=== PATIENT | female | born 1970 | race Caucasian/White ===

== ENCOUNTER 2018-10-02 23:23 | Inpatient (IN) | payer MEDICAID ==
[2018-10-02] MEDS ORDERED: IBUPROFEN 600 MG TAB PO STA (23:49)
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
[2018-10-03] MEDS ORDERED: ACTIVATED CHARCOAL 50 GM/240 ML BOTTLE PO STA (00:05)
[2018-10-03] MEDS ORDERED: KETOROLAC 30 MG/ML 1 ML VIAL IM STA (00:33)
[2018-10-03 01:26] LABS: Basophils # (A) 0.1 k/uL (0-0.2); Basophils % (A) 1 %; Eosinophils # (A) 0.1 k/uL (0-0.7); Eosinophils % (A) 2 %; HCT 34.7 % (34.0-46.0); HGB 11.7 gm/dL (11.4-16.0); Lymphocytes # (A) 2.3 k/uL (1.0-4.8); Lymphocytes % (A) 32 %; MCH 32.4 pg (25.0-35.0); MCHC 33.7 g/dL (31.0-37.0); MCV 96.1 fL (80.0-100.0); Mean Platelet Volume 7.9; Monocytes # (A) 0.6 k/uL (0-1.0); Monocytes % (A) 8 %; Neutrophils % (A) 55 %; Platelet Count 251 k/uL (150-450); RBC 3.61 m/uL (3.80-5.40); RDW 13.2 % (11.5-15.5); WBC 7.2 k/uL (3.8-10.6)
[2018-10-03 01:36] LABS: ALT 28 U/L (9-52); AST 24 U/L (14-36); Alkaline Phosphatase 155 U/L (38-126); Anion Gap 6 mmol/L; Blood Urea Nitrogen 13 mg/dL (7-17); Calcium 9.2 mg/dL (8.4-10.2); Carbon Dioxide 29 mmol/L (22-30); Chloride 104 mmol/L (98-107); Glucose 128 mg/dL (74-99); Potassium 3.6 mmol/L (3.5-5.1); Sodium 139 mmol/L (137-145); Total Bilirubin 0.3 mg/dL (0.2-1.3); Total Protein 6.5 g/dL (6.3-8.2)
[2018-10-03 03:59] LABS: Amphetamine Screen,Urine Detected (NotDetected); Barbiturate Screen,Urine Not Detected (NotDetected); Benzodiazepines Screen,Urine Detected (NotDetected); Cocaine Screen,Urine Not Detected (NotDetected); Methadone Screen, Urine Not Detected (NotDetected); Opiate Screen,Urine Not Detected (NotDetected); Oxycodone Screen, Urine Detected (NotDetected); Phencyclidine Screen,Urine Not Detected (NotDetected); Tricyclic Antidepressant,Urine Not Detected (NotDetected); Urn Cannabinoid Scrn Detected (NotDetected)
[2018-10-03 04:00] LABS: Appearance,Urine Clear (Clear); Bilirubin,Urine Negative (Negative); Blood,Urine Negative (Negative); Color,Urine Light Yellow; Glucose,Urine (UA) Negative (Negative); Ketones,Urine Negative (Negative); Leukocyte Esterase,Urine Small (Negative); Mucus,Urine Rare /hpf; Nitrite,Urine Negative (Negative); Protein,Urine Negative (Negative); RBC,Urine 1 /hpf (0-5); Specific Gravity,Urine 1.007 (1.001-1.035); Squamous Epithelial Cell,Urine 3 /hpf (0-4); Urobilinogen,Urine <2.0 mg/dL (<2.0); WBC,Urine 6 /hpf (0-5)
[2018-10-03] MEDS ORDERED: KETOROLAC 60 MG/2 ML VIAL IM STA (13:04)
[2018-10-03] MEDS ORDERED: MAG HYDROX/AL HYDROX/SIMETH 30 ML CUP PO PRN (13:57)
[2018-10-03] MEDS ORDERED: ACETAMINOPHEN TAB 325 MG TAB PO PRN (13:57)
[2018-10-03] MEDS ORDERED: MAGNESIUM HYDROXIDE 2,400 MG/10 ML CUP PO PRN (13:57)
[2018-10-03] MEDS ORDERED: ZIPRASIDONE 20 MG VIAL IM PRN (13:57)
[2018-10-03] MEDS ORDERED: GABAPENTIN 300 MG CAP PO STA (14:19)
[2018-10-03] MEDS ORDERED: GABAPENTIN 100 MG CAP PO STA (14:19)
[2018-10-03] MEDS: LORazepam 1 MG TAB PO PRN ×2 (15:33→23:06)
[2018-10-03] MEDS ORDERED: IBUPROFEN 600 MG TAB PO PRN (16:04)
[2018-10-03] MEDS: GABAPENTIN 300 MG CAP PO SCH ×2 (16:04→23:06)
[2018-10-03 16:29] VITALS: BMI 23.5
--- NOTE | 2018-10-03 18:29 | P.MDCNMH ---
History of Present Illness H&P Date: 10/03/18 Chief Complaint: evaluation for pain control patient is 48 year old female with history of ADHD. she was brought to the hospital by [facility] for psychiatric evalu ation. Patient reports being in a lot of pain that made her hope and wish that she can . She was having suicidal ideation for which her daughter called the [facility] department. Patient admits to being agitated due to poor pain control. In the ER she was found to be combative and uncooperative. When asked about suicidal ideation she reports that due to pain she hopes and wishes that she wouldn't wake up anymore but she wouldn't actively pursue or commit suicide. Patient currently denies any chest pain or trouble breathing denies any fevers or chills denies any coughing denies any upper respiratory like infection symptoms denies any GI bleeding. She takes Percocet at home for pain control without much benefit per her report Review of Systems Pertinent positives as noted in HPI. All other systems were reviewed and are negative Past Medical History Past Medical History: No Reported History History of Any Multi-Drug Resistant Organisms: None Reported Past Surgical History: Section, Hysterectomy, Orthopedic Surgery Additional Past Surgical History / Comment(s): back surgery Smoking Status: Never smoker Medications and Allergies Home Medications Medication Instructions Recorded Confirmed Type Dextroamphetamine/Amphetamine 20 mg PO TID 10/03/18 10/03/18 History [Adderall] Diazepam [Valium] 5 mg PO TID PRN 10/03/18 10/03/18 History FLUoxetine HCL [PROzac] 20 mg PO DAILY 10/03/18 10/03/18 History Gabapentin [Neurontin] 300 mg PO TID 10/03/18 10/03/18 History oxyCODONE-APAP 5-325MG [Percocet 1 tab PO Q6HR PRN 10/03/18 10/03/18 History 5-325 mg] Allergies Allergy/AdvReac Type Severity Reaction Status Date / Time latex Allergy Rash/Hives Verified 10/03/18 07:38 Physical Exam Vitals: Vital Signs Temp Pulse Pulse Resp BP BP Pulse Ox 10/03/18 16:21 98.6 F 64 16 130/85 99 10/03/18 14:49 97.1 F L 59 L 18 107/67 98 10/03/18 10:44 66 18 102/57 95 10/03/18 02:00 68 16 103/62 100 10/02/18 23:32 98.7 F 78 18 140/79 99 Intake and Output 10/03/18 10/03/18 10/03/18 06:59 14:59 22:59 Other: Weight 62.596 kg 62.1 kg Constitutional: No acute distress, conversant, pleasant Eyes: Anicteric sclerae, moist conjunctiva, no lid-lag Pupils equal round reactive to light ENMT: NC/AT Oropharynx clear, no erythema, exudates Neck: Supple, FROM, no masses, or JVD No carotid bruits No thyromegaly Lungs: Clear to auscultation Clear to percussion Normal respiratory effort, no accessory muscle use Cardiovascular: Heart regular in rate and rhythm, No murmurs, gallops, or rubs No peripheral edema Abdominal: Soft Nontender, no guarding, rebound or rigidity Abdomen moving with respiration Normoactive bowel sounds No hepatomegaly, No splenomegaly No palpable mass No abdominal wall hernia noted Skin: Normal temperature, tone, texture, turgor No induration No subcutaneous nodules No rash, lesions No ulcers Extremities: No digital cyanosis No clubbing Pedal pulses intact and symmetrical Radial pulses intact and symmetrical No calf tenderness Psychiatric: Alert and oriented to person, place and time Depressed affect, avoids eye contact Poor judgment Neuro Muscles Strength 5/5 in bilateral upper extremities, 4 out of 5 in bilateral lower extremities Sensation to light touch grossly present throughout Cranial nerves II-XII grossly intact No focal sensory deficits Straight leg raise is negative Lymphatics: no palpable cervical or supraclavicular , or inguinal lymph nodes Cranial Nerve Examination - Cranial Nerves Cranial Nerve II- Optic: Intact Cranial Nerve III- Oculomotor: Intact Cranial Nerve IV- Trochlear: Intact Cranial Nerve V- Trigeminal: Intact Cranial Nerve - Abducens: Intact Cranial Nerve VII- Facial: Intact Cranial Nerve VIII- Auditory: Intact Cranial Nerve IX- Glossopharyngeal: Intact Cranial Nerve X- Vagus: Intact Cranial Nerve XI- Accessory: Intact Cranial Nerve XII- Hypoglossal: Intact Results CBC & Chem 7: 10/03/18 01:15 10/03/18 01:15 Labs: Abnormal Lab Results - Last 24 Hours (Table) 10/03/18 10/03/18 10/03/18 Range/Units 01:15 01:15 03:35 RBC 3.61 L (3.80-5.40) m/uL Glucose 128 H (74-99) mg/dL Alkaline Phosphatase 155 H (38-126) U/L Ur Leukocyte Esterase Small H (Negative) Urine WBC 6 H (0-5) /hpf Urine Mucus Rare H (None) /hpf Ur Oxycodone Screen Detected H (NotDetected) Ur Amphetamines Screen Detected H (NotDetected) U Benzodiazepines Scrn Detected H (NotDetected) U Marijuana (THC) Screen Detected H (NotDetected) Assessment and Plan Assessment: 48-year-old female with history of ADHD presents to the hospital for psychiatric evaluation for suicidal ideation upon request of her daughter. Medicine consult for pain management. Patient was screaming in the ER being combative and uncooperative claiming that she is in a lot of pain Plan: Intractable low back pain and bilateral leg pain Patient had orthopedic surgery for her lower back for spinal stenosis per her claim Continue with Neurontin Continue with ibuprofen 800 3 times a day PPI for GI prophylaxis Patient low risk for DVT, patient is ambulatory Psychosis with combative and uncooperative behavior Suicidal ideation Management per psych Labs reviewed shows polysubstance abuse Thank you for allowing us to participate in the care of this patient. We will follow peripherally. Do not hesitate to contact us with questions. Someone can be reached from the [facility] hospitalist group at all hours of the day at [phone].
[2018-10-03] MEDS: PANTOPRAZOLE 40 MG TABLET PO SCH (18:58)
[2018-10-03] MEDS ORDERED: MELOXICAM 7.5 MG TAB PO SCH (21:00)
[2018-10-03] MEDS: IBUPROFEN 800 MG TAB PO PRN (23:05)
[2018-10-04] MEDS ORDERED: PANTOPRAZOLE 40 MG TABLET PO SCH (07:30)
[2018-10-04] MEDS ORDERED: NICOTINE 14MG/24HR PATCH TRANSDERM SCH (09:00)
[2018-10-04] MEDS ORDERED: FLUoxetine HCL 20 MG CAP PO SCH (09:00)
[2018-10-04] MEDS: IBUPROFEN 800 MG TAB PO PRN ×2 (09:09→16:45)
[2018-10-04] MEDS: PANTOPRAZOLE 40 MG TABLET PO SCH ×2 (09:09→16:17)
[2018-10-04] MEDS: GABAPENTIN 300 MG CAP PO SCH ×3 (09:09→20:09)
[2018-10-04] MEDS: LORazepam 1 MG TAB PO PRN ×2 (10:39→19:10)
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
[2018-10-04] MEDS: LIDOCAINE 5% PATCH TOPICAL SCH (21:23)
[2018-10-05] MEDS: FLUoxetine HCL 20 MG CAP PO SCH (08:08)
[2018-10-05] MEDS: GABAPENTIN 300 MG CAP PO SCH ×3 (08:08→21:09)
[2018-10-05] MEDS: IBUPROFEN 800 MG TAB PO PRN ×3 (08:08→21:09)
[2018-10-05] MEDS: PANTOPRAZOLE 40 MG TABLET PO SCH ×2 (08:08→17:23)
--- NOTE | 2018-10-05 15:16 | P.PN ---
Progress Note - Text Progress Note Date: 10/05/18 Interval history: Patient seen in [facility] today. She does report that she talked her mom on the phone which seemed to go well and her daughter may be visiting [facility]. She does talk about having issues with pain, she has been started on the Lidoderm patch which is helping some. She does not voice any adverse psychotropic medication side effects from the Prozac. Mental status exam: She is alert and cooperative with the interview. Her speech is fluent, not rapid or pressured. Thought processes are organized. Her mood overall seems to be improved. She denies any thoughts of harm to self or others. No evidence of active psychosis. Plan: Patient be maintained on Prozac as current. She will be monitored regarding any medication side effects and continue to monitor her ongoing response to treatment.
[2018-10-05] MEDS: LIDOCAINE 5% PATCH TOPICAL SCH (21:07)
[2018-10-05] MEDS: LORazepam 1 MG TAB PO PRN (21:09)
[2018-10-06] MEDS: PANTOPRAZOLE 40 MG TABLET PO SCH ×2 (08:48→17:30)
[2018-10-06] MEDS: GABAPENTIN 300 MG CAP PO SCH (08:49)
[2018-10-06] MEDS: FLUoxetine HCL 20 MG CAP PO SCH (08:49)
[2018-10-06] MEDS: IBUPROFEN 800 MG TAB PO PRN (08:50)
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
[2018-10-06] MEDS: MELOXICAM 7.5 MG TAB PO SCH (20:54)
[2018-10-06] MEDS: LIDOCAINE 5% PATCH TOPICAL SCH (20:57)
[2018-10-06] MEDS ORDERED: PRAMIPEXOLE 0.5 MG TAB PO SCH (21:00)
[2018-10-06] MEDS ORDERED: VENLAFAXINE HCL ER 37.5 MG CAP PO SCH (21:00)
[2018-10-07] MEDS: MELOXICAM 7.5 MG TAB PO SCH ×2 (08:17→20:15)
[2018-10-07] MEDS: PANTOPRAZOLE 40 MG TABLET PO SCH ×2 (08:17→17:01)
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
[2018-10-07] MEDS: PRAMIPEXOLE 0.5 MG TAB PO SCH (20:13)
[2018-10-07] MEDS: LIDOCAINE 5% PATCH TOPICAL SCH (20:14)
[2018-10-07] MEDS ORDERED: lamoTRIgine 25 MG TAB PO SCH (21:00)
[2018-10-07] MEDS ORDERED: VENLAFAXINE HCL ER 75 MG CAP PO SCH (21:00)
[2018-10-08] MEDS ORDERED: TRIMETHOBENZAMIDE 300 MG CAP PO ONE (02:49)
[2018-10-08] MEDS ORDERED: PROCHLORPERAZINE 10 MG TAB PO ONE (03:02)
[2018-10-08] MEDS ORDERED: PROCHLORPERAZINE 5 MG TAB PO ONE (03:15)
[2018-10-08 07:48] LABS: Anion Gap 5 mmol/L; Blood Urea Nitrogen 14 mg/dL (7-17); Calcium 9.5 mg/dL (8.4-10.2); Carbon Dioxide 33 mmol/L (22-30); Chloride 105 mmol/L (98-107); Glucose 98 mg/dL (74-99); Potassium 3.5 mmol/L (3.5-5.1); Sodium 143 mmol/L (137-145)
[2018-10-08] MEDS: PANTOPRAZOLE 40 MG TABLET PO SCH ×2 (10:31→17:23)
[2018-10-08] MEDS: MELOXICAM 7.5 MG TAB PO SCH (10:31)
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
[2018-10-08] MEDS: IBUPROFEN 800 MG TAB PO PRN (20:03)
[2018-10-08] MEDS: PRAMIPEXOLE 0.5 MG TAB PO SCH (20:48)
[2018-10-08] MEDS ORDERED: lamoTRIgine 25 MG TAB PO SCH (21:00)
[2018-10-08] MEDS ORDERED: VENLAFAXINE HCL ER 150 MG CAP PO SCH (21:00)
[2018-10-08] MEDS: LIDOCAINE 5% PATCH TOPICAL SCH (21:18)
[2018-10-09 06:58] VITALS: BP 123/71; PULSE 59; RESP 14; TEMP 98.9
[2018-10-09] MEDS: PANTOPRAZOLE 40 MG TABLET PO SCH (08:31)
[2018-10-09] MEDS: IBUPROFEN 800 MG TAB PO PRN (08:31)
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
== END 2018-10-09 11:55 | disposition home or self-care (01) | DRG 885 ==
LOC: EC 23:23 → 3MHU 10-03 13:48
PROVIDERS: ADMIT Psychiatry & Neurology Psychiatry; ATTEND Psychiatry & Neurology Psychiatry
DX: F33.2 Major depressive disorder, recurrent severe without psychotic features (principal); R45.851 Suicidal ideations; Z78.1 Physical restraint status; F90.9 Attention-deficit hyperactivity disorder, unspecified type; F41.9 Anxiety disorder, unspecified; R26.2 Difficulty in walking, not elsewhere classified; G89.4 Chronic pain syndrome; M79.7 Fibromyalgia; G25.81 Restless legs syndrome; M54.9 Dorsalgia, unspecified; M25.562 Pain in left knee; Z79.899 Other long term (current) drug therapy; Z91.040 Latex allergy status; Z90.710 Acquired absence of both cervix and uterus; Z98.891 History of uterine scar from previous surgery; Z98.890 Other specified postprocedural states
CPT/HCPCS: 36415; 51798; 80048; 80053; 80306; 81001; 81025; 82075; 85025; 96372; 99285

== ENCOUNTER → 2018-10-21 | Outpatient (CLI) | payer MEDICAID ==
--- NOTE | 2018-10-21 14:20 | XR ---
EXAMINATION TYPE: XR pelvis AP view DATE OF EXAM: 10/21/2018 COMPARISON: NONE HISTORY: Pain The osseous structures are intact and the joint spaces are preserved. No acute fracture is seen. Vi sualized bowel gas pattern is nonspecific. Postsurgical change involving the SI joints and lower lum bar spine noted. Arthropathy of the hips. Calcifications the pelvis are likely vascular. Tiny calcifi cation the left paraspinal region is nonspecific. IMPRESSION: 1. No acute fracture. 2. Postsurgical changes.
== END ==
LOC: RADXRMAIN 13:05
PROVIDERS: ATTEND Neurological Surgery
DX: M25.9 Joint disorder, unspecified (principal); Z98.890 Other specified postprocedural states
CPT/HCPCS: 72170

== ENCOUNTER → 2019-04-21 | Outpatient (CLI) | payer MEDICAID ==
--- NOTE | 2019-04-21 14:17 | XR ---
EXAMINATION TYPE: XR chest 2V DATE OF EXAM: 04/21/2019 COMPARISON: NONE TECHNIQUE: PA and lateral views submitted. HISTORY: Cough FINDINGS: The lungs are clear and there is no pneumothorax, pleural effusion, or focal pneumonia. Hypertrophi c and degenerative change of the spine. No overt failure. IMPRESSION: 1. No acute process.
== END | disposition home or self-care (01) ==
LOC: RADXRMAIN 13:31
PROVIDERS: ATTEND Family Medicine
DX: R05 Cough (principal)
CPT/HCPCS: 71046

== ENCOUNTER 2019-07-13 16:51 | Emergency (ER) | payer MEDICAID ==
[2019-07-13] MEDS ORDERED: KETOROLAC 60 MG/2 ML VIAL IM STA (18:52)
--- NOTE | 2019-07-13 19:10 | US ---
EXAMINATION TYPE: US venous doppler duplex LE LT DATE OF EXAM: 07/13/2019 6:48 PM COMPARISON: NONE CLINICAL HISTORY: rule out DVT. Rule out DVT. Patient feels painful lump behind knee x 2 days. Maliha coleman does not take any blood thinners. No hx of DVT. SIDE PERFORMED: Left TECHNIQUE: The lower extremity deep venous system is examined utilizing real time linear array sonog lety with graded compression, doppler sonography and color-flow sonography. VESSELS IMAGED: External Iliac Vein (EIV) Common Femoral Vein Deep Femoral Vein Greater Saphenous Vein * Femoral Vein Popliteal Vein Small Saphenous Vein * Proximal Calf Veins (* superficial vessels) Left Leg: No evidence of DVT in veins imaged at this time from prox calf veins to EIV. At the patien t's area of concern left posteromedial knee, there appears to be a primarily anechoic area with minim al debris measurin.5 x 2.7 x 2.1 cm. IMPRESSION: No evidence of deep venous thrombosis. There is popliteal cyst noted.
--- NOTE | 2019-07-13 19:23 | ED ---
Extremity Problem HPI - General Chief complaint: Extremity Problem,Nontraumatic Stated complaint: Leg pain Source: patient Mode of arrival: wheelchair Limitations: no limitations - History of Present Illness Initial comments: 49 female presenting today for chief complaint of posterior medial left knee pain patient states that she has felt a lump in this area and has some pain that increases with range of motion. Patient denies any redness of the knee and difficulty weightbearing. Patient states she is able to range the knee however is painful at maximal flexion. Remaining review of systems negative including to allow any flulike, general malaise fever or chills. Upon arrival patient appears well no signs acute distress ambulate without difficulty. She denies any history of DVT or coronary embolism denies any exogenous hormone use or recent travel denies any recent surgical procedures or fractures. Patient denies any known clotting disorders. - Related Data Previous Rx's Medication Instructions Recorded Acetaminophen Tab [Tylenol] 650 mg PO Q4HR PRN tab 10/09/18 Gabapentin [Neurontin] 300 mg PO TID 30 Days #90 cap 10/09/18 Ibuprofen [Motrin] 800 mg PO TID PRN tab 10/09/18 Lidocaine 5% Patch [Lidoderm 5% 1 patch TOPICAL Q24H 30 Days #30 10/09/18 Patch] patch Pantoprazole [Protonix] 40 mg PO AC-BID tablet. 10/09/18 Pramipexole [Mirapex] 1.5 mg PO 2100 30 Days #90 tab 10/09/18 Venlafaxine HCl ER [Effexor XR] 150 mg PO 2100 30 Days #30 10/09/18 cap.er.24h lamoTRIgine [LaMICtal] 50 mg PO 2100 30 Days #60 tab 10/09/18 Allergies Allergy/AdvReac Type Severity Reaction Status Date / Time latex Allergy Rash/Hives Verified 10/03/18 07:38 Review of Systems ROS Statement: Those systems with pertinent positive or pertinent negative responses have been documented in the HPI. ROS Other: All systems not noted in ROS Statement are negative. Past Medical History Past Medical History: No Reported History History of Any Multi-Drug Resistant Organisms: None Reported Past Surgical History: Section, Hysterectomy, Orthopedic Surgery Additional Past Surgical History / Comment(s): back surgery Past Psychological History: ADD/ADHD Smoking Status: Never smoker Past Alcohol Use History: None Reported Past Drug Use History: None Reported General Exam - General Exam Comments Initial Comments: General: The patient is awake and alert, in no distress, and does not appear acutely ill. Eye: +3 mm pupils are equal, round and reactive to light, extra-ocular movements are intact. No nystagmus. There is normal conjunctiva bilaterally. No signs of icterus. Ears, nose, mouth and throat: There are moist mucous membranes and no oral lesions. Cardiovascular: There is a regular rate and rhythm. No murmur, rub or gallop is appreciated. Respiratory: Lungs are clear to auscultation, respirations are non-labored, breath sounds are equal. No wheezes, stridor, rales, or rhonchi. Gastrointestinal: Soft, non-distended, non-tender abdomen without masses or organomegaly noted. There is no rebound or guarding present. Musculoskeletal: Normal ROM, no tenderness. Strength 5/5. Sensation intact. Radial pulses equal bilaterally 2+. No calf swelling, no calf masses or point localized tenderness. No edema. No redness to the area. SMll 1x3xm circular mass behind left knee medical aspect. Neurological: A&O x 3. CN II-XII intact grossly, There are no obvious motor or sensory deficits. Coordination appears grossly intact. Speech is normal. Skin: Skin is warm and dry and no rashes or lesions are noted. Psychiatric: Cooperative, appropriate mood & affect, normal judgment. Limitations: no limitations Course Vital Signs 07/13/19 07/13/19 18:01 19:38 Temperature 98.4 F 97.8 F Pulse Rate 68 66 Respiratory 20 16 Rate Blood Pressure 117/63 120/75 O2 Sat by Pulse 100 98 Oximetry Medical Decision Making - Medical Decision Making 49-year-old. Presents today for chief complaint of posterior left knee pain evidence on ultrasound consistent with Quinn's cyst. Patient has no evidence of deep venous thrombosis at this time patient is no leg swelling or calf size increase. No redness or local cellulitis noted. No significant risk fctors. I feel at this time she is stable to discharge with PCP ion 1-2 days as well as orthoepdic surgery in next week. She is agreeable to this care plan and discharged at this time. I did discuss the case might attending provider Dr. Peguero Disposition Clinical Impression: Popliteal cyst, Posterior left knee pain Disposition: HOME SELF-CARE Condition: Good Instructions (If sedation given, give patient instructions): Bakers Cyst (ED) Additional Instructions: Please use medication as discussed. Please follow-up with family doctor in the next 2 days. Please return to emergency room if the symptoms increase or worsen or for any other concerns. Is patient prescribed a controlled substance at d/c from ED?: No Referrals: Kane Manning MD [Primary Care Provider] - 1-2 days Mehul Soria MD [Medical Doctor] - 1-2 days Time of Disposition: 19:23
[2019-07-13 19:39] VITALS: BP 120/75; PULSE 66; RESP 16; TEMP 97.8
== END 2019-07-13 19:39 | disposition home or self-care (01) ==
LOC: EC 16:51
DX: M71.22 Synovial cyst of popliteal space [Baker], left knee (principal); Z91.040 Latex allergy status
CPT/HCPCS: 93971; 99283; 96372; J1885

== ENCOUNTER 2019-07-25 21:39 | Emergency (ER) | payer MEDICAID ==
[2019-07-25 21:50] VITALS: BP 127/84; PULSE 92; RESP 18; TEMP 98
[2019-07-25] MEDS ORDERED: KETOROLAC 60 MG/2 ML VIAL IM STA (22:03)
--- NOTE | 2019-07-25 22:30 | XR ---
EXAMINATION TYPE: XR ankle complete LT DATE OF EXAM: 07/25/2019 COMPARISON: NONE HISTORY: Fall. Pain. TECHNIQUE: 3 views FINDINGS: Ankle mortise is anatomic. I see no fracture nor dislocation. Joint spaces are normal. IMPRESSION: Negative left ankle exam.
--- NOTE | 2019-07-25 22:38 | ED ---
Lower Extremity Injury HPI - General Chief Complaint: Extremity Injury, Lower Stated Complaint: Ankle injury Time Seen by Provider: 07/25/19 21:50 Source: patient Mode of arrival: wheelchair Limitations: no limitations - History of Present Illness Initial Comments: 49yo female presenting for cc of left ankle pain after injury that occurred today at 12:26PM. Patient states she was walking in her kitchen to the living room when she inverted her left ankle. She states that she did not fall. Patient states that her period bed. The pain persisted into the evening she was concerned there is a possible fracture present to the ER for evaluation. Patient is able to weight-bear continued to walk. Patient did show a video of home surveillance which showed her yelling out in pain as she tripped but caught herself or walking. She was walking with close in her hand. Patient does not fall of injury to any other extremity that was noted, no head neck or back injury> patient denies pain the knee or hip. Patient appears well on arriva. - Related Data Previous Rx's Medication Instructions Recorded Acetaminophen Tab [Tylenol] 650 mg PO Q4HR PRN tab 10/09/18 Gabapentin [Neurontin] 300 mg PO TID 30 Days #90 cap 10/09/18 Ibuprofen [Motrin] 800 mg PO TID PRN tab 10/09/18 Lidocaine 5% Patch [Lidoderm 5% 1 patch TOPICAL Q24H 30 Days #30 10/09/18 Patch] patch Pantoprazole [Protonix] 40 mg PO AC-BID tablet. 10/09/18 Pramipexole [Mirapex] 1.5 mg PO 2100 30 Days #90 tab 10/09/18 Venlafaxine HCl ER [Effexor XR] 150 mg PO 2100 30 Days #30 10/09/18 cap.er.24h lamoTRIgine [LaMICtal] 50 mg PO 2100 30 Days #60 tab 10/09/18 Allergies Allergy/AdvReac Type Severity Reaction Status Date / Time latex Allergy Rash/Hives Verified 10/03/18 07:38 Review of Systems ROS Statement: Those systems with pertinent positive or pertinent negative responses have been documented in the HPI. ROS Other: All systems not noted in ROS Statement are negative. Past Medical History Past Medical History: No Reported History History of Any Multi-Drug Resistant Organisms: None Reported Past Surgical History: Section, Hysterectomy, Orthopedic Surgery Additional Past Surgical History / Comment(s): back surgery Past Psychological History: ADD/ADHD Smoking Status: Never smoker Past Alcohol Use History: None Reported Past Drug Use History: None Reported General Exam - General Exam Comments Initial Comments: General: The patient is awake and alert, in no distress, and does not appear acutely ill. Eye: Pupils are equal, round and reactive to light, extra-ocular movements are intact. No nystagmus. There is normal conjunctiva bilaterally. No signs of icterus. Cardiovascular: There is a regular rate and rhythm. No murmur, rub or gallop is appreciated. Respiratory: Lungs are clear to auscultation, respirations are non-labored, breath sounds are equal. No wheezes, stridor, rales, or rhonchi. Musculoskeletal: Upon social of the ankles bilaterally there is mild soft tissue swelling of the lateral malleolus of the left ankle comparison to right. No abrasions lacerations redness or warmth. Patient is able to fully range at the ankles bilaterally contains of left anterior ankle pain denies any foot pain denies any pain in the proximal tibia and fibula. Patient hasn't no pain with log roll of the left hip. Patient is point localized tenderness over the lateral malleolus and the anterior ankle joint. Normal ROM, no tenderness of the right LE. Strength 5/5. Sensation intact. radial and DP pulses equal bilaterally 2+. Neurological: A&O x 3. CN II-XII intact grpss;y, There are no obvious motor or sensory deficits. Coordination appears grossly intact. Speech is normal. Skin: Skin is warm and dry and no rashes or lesions are noted. Psychiatric: Cooperative, appropriate mood & affect, normal judgment. Limitations: no limitations Course Vital Signs 07/25/19 21:46 Temperature 98.0 F Pulse Rate 92 Respiratory 18 Rate Blood Pressure 127/84 O2 Sat by Pulse 98 Oximetry Medical Decision Making - Medical Decision Making 49yo female presenting for left ankle pain after inversion injury. Mild soft tissue swelling and pain wtih ROM/palpation of lateral and anterior ankle joint. XR (-). Patient neurovascularly intact able to weight-bear. No knee pain no hip pain at this time I feel she is stable for discharge with ankle stirrup for support and outpatient orthopedic (for bakers cyst as she has not followed up as she was previously recommended) and primary follow-up patient is agreeable to this care plan and discharge at this time. return parameter discussed. Disposition Clinical Impression: Ankle injury, Left ankle pain Disposition: HOME SELF-CARE Condition: Good Instructions (If sedation given, give patient instructions): R.I.C.E. Treatment (ED) Additional Instructions: Please use medication as discussed. Please follow-up with family doctor in the next 2 days. Please return to emergency room if the symptoms increase or worsen or for any other concerns. Is patient prescribed a controlled substance at d/c from ED?: No Referrals: Kane Manning MD [Primary Care Provider] - 1-2 days Time of Disposition: 22:38
== END 2019-07-25 22:48 | disposition home or self-care (01) ==
LOC: EC 21:39
DX: S99.912A Unspecified injury of left ankle, initial encounter (principal); Z91.040 Latex allergy status; X50.9XXA Other and unspecified overexertion or strenuous movements or postures, initial encounter; Y93.01 Activity, walking, marching and hiking; Y92.000 Kitchen of unspecified non-institutional (private) residence as the place of occurrence of the external cause
CPT/HCPCS: 73610; 99283; 96372; J1885

== ENCOUNTER → 2019-08-07 | Outpatient (CLI) | payer MEDICAID ==
--- NOTE | 2019-08-08 10:19 | MR ---
EXAMINATION TYPE: MR knee LT wo con DATE OF EXAM: 08/07/2019 COMPARISON: Outside x-ray 08/04/2019 HISTORY: Lt knee pain x 1 mo, no known trauma TECHNIQUE: Multiplanar, multisequence imaging of the left knee is performed without IV contrast. FINDINGS: MEDIAL MENISCUS: There is abnormal signal in the posterior medial metaphysis compatible thickness tea r. LATERAL MENISCUS: Linear signal within the posterior horn suspicious for tear. CRUCIATE LIGAMENTS: The anterior and posterior cruciate ligaments are intact and unremarkable. COLLATERAL LIGAMENTS: The medial collateral ligament and lateral collateral ligament complex are inta ct and unremarkable. EXTENSOR MECHANISM: Visualized quadriceps and patellar tendons are intact. EFFUSION: No significant suprapatellar joint effusion. POPLITEAL CYST: There is a 1.5 x 1.8 x 3.6 cm popliteal fossa cyst.. TRICOMPARTMENT SPACES: Mild narrowing of the medial compartment and patellofemoral compartment joint space with no erosive change. Articular cartilage preserved. BONE MARROW SIGNAL: No focal abnormal marrow signal is appreciated. IMPRESSION: 1. There is a 1. 511.8 x 3.6 cm popliteal fossa cyst. 2. Linear posterior horn medial and lateral meniscal tear.
== END | disposition home or self-care (01) ==
LOC: RADMRIMAIN 20:59
PROVIDERS: ATTEND Orthopaedic Surgery
DX: S83.282A Other tear of lateral meniscus, current injury, left knee, initial encounter (principal)

== ENCOUNTER 2019-09-04 14:50 | Emergency (ER) | payer MEDICAID ==
[2019-09-04 15:39] VITALS: RESP 20
[2019-09-04] MEDS ORDERED: ACETAMINOPHEN TAB 500 MG TAB PO STA (15:46)
[2019-09-04] MEDS ORDERED: IBUPROFEN 600 MG TAB PO STA (15:46)
--- NOTE | 2019-09-04 15:59 | ED ---
General Adult HPI - General Chief complaint: Fever Stated complaint: Fever/cough/around people who were out of state Time Seen by Provider: 09/04/19 14:55 Source: patient, RN notes reviewed, old records reviewed Mode of arrival: ambulatory Limitations: no limitations - History of Present Illness Initial comments: This is a 49-year-old female who presents emergency Department stating that yesterday she started to have a cough. Patient states this morning she had a fever so she decided come to the emergency department. Patient states she has a little bit of sputum production. Patient denies any shortness of breath except when coughing. Patient denies any travel recently. Patient denies any known exposure to anyone with the Covid virus. Patient denies any chest pain or palpitations. Patient denies any abdominal pain patient denies nausea vomiting diarrhea. Patient denies any patient denies any numbness weakness. - Related Data Previous Rx's Medication Instructions Recorded Acetaminophen Tab [Tylenol] 650 mg PO Q4HR PRN tab 10/09/18 Gabapentin [Neurontin] 300 mg PO TID 30 Days #90 cap 10/09/18 Ibuprofen [Motrin] 800 mg PO TID PRN tab 10/09/18 Lidocaine 5% Patch [Lidoderm 5% 1 patch TOPICAL Q24H 30 Days #30 10/09/18 Patch] patch Pantoprazole [Protonix] 40 mg PO AC-BID tablet. 10/09/18 Pramipexole [Mirapex] 1.5 mg PO 2100 30 Days #90 tab 10/09/18 Venlafaxine HCl ER [Effexor XR] 150 mg PO 2100 30 Days #30 10/09/18 cap.er.24h lamoTRIgine [LaMICtal] 50 mg PO 2100 30 Days #60 tab 10/09/18 Allergies Allergy/AdvReac Type Severity Reaction Status Date / Time latex Allergy Rash/Hives Verified 09/04/19 14:54 Review of Systems ROS Statement: Those systems with pertinent positive or pertinent negative responses have been documented in the HPI. ROS Other: All systems not noted in ROS Statement are negative. Past Medical History Past Medical History: No Reported History History of Any Multi-Drug Resistant Organisms: None Reported Past Surgical History: Section, Hysterectomy, Orthopedic Surgery Additional Past Surgical History / Comment(s): back surgery Past Psychological History: ADD/ADHD Smoking Status: Never smoker Past Alcohol Use History: None Reported Past Drug Use History: None Reported General Exam - General Exam Comments Initial Comments: GENERAL: Patient is well-developed and well-nourished. Patient is nontoxic and well- hydrated and is in no acute distress. I took the patient's oral temperature it was 102.1 ENT: Neck is soft and supple. No significant lymphadenopathy is noted. Oropharynx is clear. Moist mucous membranes. Neck has full range of motion without eliciting any pain. EYES: The sclera were anicteric and conjunctiva were pink and moist. Extraocular movements were intact and pupils were equal round and reactive to light. Eyelids were unremarkable. PULMONARY: Unlabored respirations. Good breath sounds bilaterally. No audible rales rhonchi or wheezing was noted. CARDIOVASCULAR: There is a regular rate and rhythm without any murmurs gallops or rubs. ABDOMEN: Soft and nontender with normal bowel sounds. SKIN: Skin is clear with no lesions or rashes and otherwise unremarkable. NEUROLOGIC: Patient is alert and oriented x3. Cranial nerves II through XII are grossly intact. Motor and sensory are also intact. Normal speech, volume and content. Symmetrical smile. MUSCULOSKELETAL: Normal extremities with adequate strength and full range of motion. LYMPHATICS: No significant lymphadenopathy is noted PSYCHIATRIC: Normal psychiatric evaluation. Limitations: no limitations Course Vital Signs 09/04/19 09/04/19 14:52 15:38 Temperature 100.3 F H 102.1 F H Pulse Rate 86 Respiratory 16 20 Rate Blood Pressure 117/68 O2 Sat by Pulse 99 Oximetry Medical Decision Making - Medical Decision Making Chest x-ray shows no acute abnormality. Patient does not meet the current criteria for COVID testing - Lab Data Lab Results 09/04/19 Range/Units 16:25 Influenza Type A RNA Not Detected (Not Detectd) Influenza Type B (PCR) Not Detected (Not Detectd) Disposition Clinical Impression: Upper respiratory infection Disposition: HOME SELF-CARE Instructions (If sedation given, give patient instructions): Upper Respiratory Infection (ED) Additional Instructions: Patient should return if the symptoms worsen or there are any new symptoms. Is patient prescribed a controlled substance at d/c from ED?: No Referrals: Kane Manning MD [Primary Care Provider] - 1-2 days Time of Disposition: 17:00
--- NOTE | 2019-09-04 16:41 | XR ---
EXAMINATION TYPE: XR chest 2V DATE OF EXAM: 09/04/2019 COMPARISON: Prior chest x-ray 04/21/2019 HISTORY: Difficulty breathing, cough and congestion TECHNIQUE: Frontal and lateral views of the chest are obtained. FINDINGS: There is no focal air space opacity, pleural effusion, or pneumothorax seen. The cardiac silhouette size is within normal limits. There is mild spinal curvature. The osseous structures are intact. IMPRESSION: No acute cardiopulmonary process.
[2019-09-04 17:50] VITALS: BP 120/80; PULSE 76; TEMP 100.1
== END 2019-09-04 17:50 | disposition home or self-care (01) ==
LOC: EC 14:50
DX: J06.9 Acute upper respiratory infection, unspecified (principal); Z91.040 Latex allergy status
CPT/HCPCS: 71046; 87502; 99284

== ENCOUNTER → 2019-09-04 | Outpatient (CLI) | payer MEDICAID ==
[2019-09-04 11:15] LABS: Basophils % (A) 0 %; Eosinophils # (A) 0.1 k/uL (0-0.7); Eosinophils % (A) 1 %; HCT 41.5 % (34.0-46.0); HGB 12.9 gm/dL (11.4-16.0); Lymphocytes # (A) 1.5 k/uL (1.0-4.8); Lymphocytes % (A) 15 %; MCH 30.4 pg (25.0-35.0); MCHC 31.1 g/dL (31.0-37.0); MCV 97.9 fL (80.0-100.0); Mean Platelet Volume 7.7; Monocytes # (A) 0.6 k/uL (0-1.0); Monocytes % (A) 5 %; Neutrophils # (A) 8.1 k/uL (1.3-7.7); Neutrophils % (A) 78 %; Platelet Count 263 k/uL (150-450); RBC 4.24 m/uL (3.80-5.40); RDW 12.4 % (11.5-15.5); WBC 10.4 k/uL (3.8-10.6)
[2019-09-04 11:18] LABS: Potassium 4.6 mmol/L (3.5-5.1)
== END | disposition home or self-care (01) ==
LOC: LABPAT 09:26
PROVIDERS: ATTEND Orthopaedic Surgery
DX: Z01.810 Encounter for preprocedural cardiovascular examination (principal); M23.92 Unspecified internal derangement of left knee
CPT/HCPCS: 36415; 80051; 85025; 93005

== ENCOUNTER 2020-06-15 09:35 | Observation (INO) | payer MEDICAID, OTHER ==
--- NOTE | 2020-06-15 10:08 | ED ---
General Adult HPI - General Chief complaint: Chest Pain Stated complaint: Chest Pain Time Seen by Provider: 06/15/20 09:43 Source: patient, RN notes reviewed, old records reviewed Mode of arrival: ambulatory Limitations: no limitations - History of Present Illness Initial comments: 50-year-old female presenting for reevaluation of chest pain. Patient has had to outside emergency department evaluations and has been seen by her primary care physician regarding left chest pain and back pain. According to the patient she received computed tomography scan approximately 10 days ago of the chest which was reported as negative as well as CT angiography within the past one week at [facility] she states this was also negative. She had blood work and serial cardiac enzymes at this time. Also negative. She has persistent left-sided chest pain. No cough or fever. No URI symptoms. No nausea vomiting. Patient has no known history of coronary artery disease. Additionally the patient has indicated that she was noted to have suspected rupture of her breast implants on CT from outside hospital and she has made an appointment with surgery regarding this additionally she's had a mammogram and MRI scheduled of the breast. - Related Data Home Medications Medication Instructions Recorded Confirmed Albuterol Sulfate [Ventolin HFA] 1 - 2 puff INHALATION RT-Q6H PRN 06/15/20 06/15/20 Dextroamphetamine/Amphetamine 20 mg PO TID PRN 06/15/20 06/15/20 [Adderall] Gabapentin [Neurontin] 1,200 mg PO HS 06/15/20 06/15/20 Allergies Allergy/AdvReac Type Severity Reaction Status Date / Time latex Allergy Rash/Hives Verified 06/15/20 10:50 levofloxacin [From Levaquin] AdvReac Unknown Verified 06/15/20 10:50 Review of Systems ROS Statement: Those systems with pertinent positive or pertinent negative responses have been documented in the HPI. ROS Other: All systems not noted in ROS Statement are negative. Past Medical History Past Medical History: No Reported History, Fibromyalgia History of Any Multi-Drug Resistant Organisms: None Reported Past Surgical History: Section, Hysterectomy, Orthopedic Surgery Additional Past Surgical History / Comment(s): back surgery Past Psychological History: ADD/ADHD Smoking Status: Never smoker Past Alcohol Use History: Occasional Past Drug Use History: None Reported General Exam Limitations: no limitations General appearance: alert, in no apparent distress Head exam: Present: atraumatic, normocephalic Eye exam: Present: normal appearance, PERRL ENT exam: Present: normal exam Neck exam: Present: normal inspection. Absent: tenderness, meningismus Respiratory exam: Present: normal lung sounds bilaterally, other (Left axilla: normal skin, no signs of infection, no external signs of trauma). Absent: respiratory distress, wheezes, chest wall tenderness Cardiovascular Exam: Present: regular rate, normal rhythm GI/Abdominal exam: Present: soft. Absent: distended, tenderness, guarding Extremities exam: Present: normal inspection, normal capillary refill. Absent: calf tenderness Neurological exam: Present: alert, oriented X3, CN II-XII intact. Absent: motor sensory deficit Psychiatric exam: Present: normal affect, normal mood Skin exam: Present: warm, dry, intact. Absent: cyanosis, diaphoretic Course Vital Signs 06/15/20 06/15/20 09:36 11:00 Temperature 98.3 F Pulse Rate 82 67 Respiratory 18 18 Rate Blood Pressure 145/89 129/76 O2 Sat by Pulse 100 98 Oximetry EKG Findings - EKG Comments: EKG Findings:: EKG: Normal sinus rhythm, T-wave inversion in V3, no ST segment elevation, rate of 72, CA interval 118, QRS duration 72, QTC 451 Medical Decision Making - Medical Decision Making 50-year-old female with ongoing chest pain over the past one week. She's had 3 total ER visits regarding this pain. She continues to have pain, left side which is worse with exertion. EKG shows sinus rhythm without ST segment elevation. She has a normal CBC, normal CMP with exception of a mildly elevated blood glucose at 184. She has a negative d-dimer, negative initial troponin. Given the ongoing nature of her symptoms she will be placed in observation for serial cardiac enzymes, telemetry, cardiology consultation. - Lab Data Result diagrams: 06/15/20 10:01 06/15/20 10:01 Lab Results 06/15/20 06/15/20 06/15/20 Range/Units 10:01 10:01 10:01 WBC 7.5 (3.8-10.6) k/uL RBC 4.31 (3.80-5.40) m/uL Hgb 13.9 (11.4-16.0) gm/dL Hct 41.3 (34.0-46.0) % MCV 95.9 (80.0-100.0) fL MCH 32.2 (25.0-35.0) pg MCHC 33.6 (31.0-37.0) g/dL RDW 12.3 (11.5-15.5) % Plt Count 306 (150-450) k/uL MPV 7.1 Neutrophils % 59 % Lymphocytes % 33 % Monocytes % 5 % Eosinophils % 1 % Basophils % 1 % Neutrophils # 4.4 (1.3-7.7) k/uL Lymphocytes # 2.5 (1.0-4.8) k/uL Monocytes # 0.4 (0-1.0) k/uL Eosinophils # 0.1 (0-0.7) k/uL Basophils # 0.1 (0-0.2) k/uL PT 11.2 (9.0-12.0) sec INR 1.1 (<1.2) APTT 23.1 (22.0-30.0) sec D-Dimer 0.48 (<0.60) mg/L FEU Sodium 137 (137-145) mmol/L Potassium 4.0 (3.5-5.1) mmol/L Chloride 100 (98-107) mmol/L Carbon Dioxide 29 (22-30) mmol/L Anion Gap 8 mmol/L BUN 13 (7-17) mg/dL Creatinine 0.57 (0.52-1.04) mg/dL Est GFR (CKD-EPI)AfAm >90 (>60 ml/min/1.73 sqM) Est GFR (CKD-EPI)NonAf >90 (>60 ml/min/1.73 sqM) Glucose 184 H (74-99) mg/dL Calcium 9.7 (8.4-10.2) mg/dL Magnesium 2.0 (1.6-2.3) mg/dL Total Bilirubin 0.5 (0.2-1.3) mg/dL AST 35 (14-36) U/L ALT 41 H (4-34) U/L Alkaline Phosphatase 106 (38-126) U/L Troponin I (0.000-0.034) ng/mL Total Protein 7.6 (6.3-8.2) g/dL Albumin 4.6 (3.5-5.0) g/dL Lipase 102 (23-300) U/L 06/15/20 Range/Units 10:01 WBC (3.8-10.6) k/uL RBC (3.80-5.40) m/uL Hgb (11.4-16.0) gm/dL Hct (34.0-46.0) % MCV (80.0-100.0) fL MCH (25.0-35.0) pg MCHC (31.0-37.0) g/dL RDW (11.5-15.5) % Plt Count (150-450) k/uL MPV Neutrophils % % Lymphocytes % % Monocytes % % Eosinophils % % Basophils % % Neutrophils # (1.3-7.7) k/uL Lymphocytes # (1.0-4.8) k/uL Monocytes # (0-1.0) k/uL Eosinophils # (0-0.7) k/uL Basophils # (0-0.2) k/uL PT (9.0-12.0) sec INR (<1.2) APTT (22.0-30.0) sec D-Dimer (<0.60) mg/L FEU Sodium (137-145) mmol/L Potassium (3.5-5.1) mmol/L Chloride (98-107) mmol/L Carbon Dioxide (22-30) mmol/L Anion Gap mmol/L BUN (7-17) mg/dL Creatinine (0.52-1.04) mg/dL Est GFR (CKD-EPI)AfAm (>60 ml/min/1.73 sqM) Est GFR (CKD-EPI)NonAf (>60 ml/min/1.73 sqM) Glucose (74-99) mg/dL Calcium (8.4-10.2) mg/dL Magnesium (1.6-2.3) mg/dL Total Bilirubin (0.2-1.3) mg/dL AST (14-36) U/L ALT (4-34) U/L Alkaline Phosphatase (38-126) U/L Troponin I <0.012 (0.000-0.034) ng/mL Total Protein (6.3-8.2) g/dL Albumin (3.5-5.0) g/dL Lipase (23-300) U/L Disposition Clinical Impression: Chest pain Disposition: ADMITTED IP TO THIS HOSP Condition: Stable Is patient prescribed a controlled substance at d/c from ED?: No Referrals: Kane Manning MD [Primary Care Provider] - 1-2 days Decision to Admit Reason: Admit from EC Decision Date: 06/15/20 Decision Time: 11:29
[2020-06-15 10:11] LABS: Basophils # (A) 0.1 k/uL (0-0.2); Basophils % (A) 1 %; Eosinophils # (A) 0.1 k/uL (0-0.7); Eosinophils % (A) 1 %; HCT 41.3 % (34.0-46.0); HGB 13.9 gm/dL (11.4-16.0); Lymphocytes # (A) 2.5 k/uL (1.0-4.8); Lymphocytes % (A) 33 %; MCH 32.2 pg (25.0-35.0); MCHC 33.6 g/dL (31.0-37.0); MCV 95.9 fL (80.0-100.0); Mean Platelet Volume 7.1; Monocytes # (A) 0.4 k/uL (0-1.0); Monocytes % (A) 5 %; Neutrophils # (A) 4.4 k/uL (1.3-7.7); Neutrophils % (A) 59 %; Platelet Count 306 k/uL (150-450); RBC 4.31 m/uL (3.80-5.40); RDW 12.3 % (11.5-15.5); WBC 7.5 k/uL (3.8-10.6)
--- NOTE | 2020-06-15 10:30 | XR ---
EXAMINATION TYPE: XR chest 2V DATE OF EXAM: 06/15/2020 COMPARISON: Chest pain and shortness of breath TECHNIQUE: PA and lateral views submitted. HISTORY: Prethirteen 2019 FINDINGS: The lungs are clear and there is no pneumothorax, pleural effusion, or focal pneumonia. Mild hyperi nflation. There is curvature of the spine. No overt failure. Hypertrophic and degenerative changes. IMPRESSION: 1. No acute process.
[2020-06-15 10:34] LABS: ALT 41 U/L (4-34); AST 35 U/L (14-36); African American GFR (CKD) >90 (>60 ml/min/1.73 sqM); Albumin 4.6 g/dL (3.5-5.0); Alkaline Phosphatase 106 U/L (38-126); Anion Gap 8 mmol/L; Blood Urea Nitrogen 13 mg/dL (7-17); Calcium 9.7 mg/dL (8.4-10.2); Carbon Dioxide 29 mmol/L (22-30); Chloride 100 mmol/L (98-107); Glucose 184 mg/dL (74-99); Lipase 102 U/L (23-300); Non-African American GFR(CKD) >90 (>60 ml/min/1.73 sqM); Sodium 137 mmol/L (137-145); Total Bilirubin 0.5 mg/dL (0.2-1.3); Total Protein 7.6 g/dL (6.3-8.2)
[2020-06-15 10:48] LABS: D-Dimer 0.48 mg/L FEU (<0.60); INR 1.1 (<1.2); Partial Thromboplastin Time 23.1 sec (22.0-30.0); Prothrombin Time 11.2 sec (9.0-12.0)
[2020-06-15] MEDS ORDERED: ASPIRIN 325 MG TAB PO STA (11:25)
[2020-06-15] MEDS ORDERED: ACETAMINOPHEN TAB 325 MG TAB PO PRN (11:30)
[2020-06-15] MEDS ORDERED: NALOXONE 0.4 MG/ML 1 ML VIAL IV PRN (11:30)
[2020-06-15] MEDS ORDERED: MORPHINE SULFATE 4 MG/ML SYRINGE IV PRN (11:30)
[2020-06-15] MEDS ORDERED: ALBUTEROL NEBULIZED 2.5 MG/3 ML INHALATION PRN (12:52)
--- NOTE | 2020-06-15 12:56 | P.HPIM ---
History of Present Illness H&P Date: 06/15/20 Chief Complaint: CC: chest pain Patient is a 50-year-old female with a past medical history of ADHD, asthma and chronic back pain who presents to the ED with left-sided pressure-like chest pain that radiates to her neck. Patient states that in the past 3 weeks she has been to the ED 3 times and each time she was discharged home. She says that the first time she went to the ED at [facility] urgent care she had a computed tomography scan that was negative for pulmonary embolism but showed bilateral breast implant rupture. Patient states that she has made a follow-up appointment with surgeon to address this. She states that she then went to her PCP and on her EKG was found to have T-wave inversions so her PCP sent her back to [facility] urgent care. This time she states that she had troponins done that were negative and so she was discharged. Patient says that the third time she went to [facility] and again she had troponins that were negative and was discharged. She comes to our ED today. Patient states that her chest pain is worse with exertion. She stated that if she walks more than 50 feet she gets her chest pain. Patient states that when her chest pain at its worst is at 7 out of 10. Patient currently is complaining of 3 out of 10 chest pain. She states that it improves with rest. She says that is also exacerbated by stress. 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 Review of Systems 10 ROS reviewed and are negative except as noted in HPI Past Medical History Past Medical History: No Reported History, Fibromyalgia Additional Past Medical History / Comment(s): diverticulitis History of Any Multi-Drug Resistant Organisms: None Reported Past Surgical History: Section, Hysterectomy, Orthopedic Surgery Additional Past Surgical History / Comment(s): back surgery, colonoscopy, laparoscopy, breast augmentation Past Anesthesia/Blood Transfusion Reactions: No Reported Reaction Past Psychological History: ADD/ADHD Smoking Status: Never smoker Past Alcohol Use History: Occasional Past Drug Use History: None Reported Medications and Allergies Home Medications Medication Instructions Recorded Confirmed Type Albuterol Sulfate [Ventolin HFA] 1 - 2 puff INHALATION RT-Q6H PRN 06/15/20 06/15/20 History Dextroamphetamine/Amphetamine 20 mg PO TID PRN 06/15/20 06/15/20 History [Adderall] Gabapentin [Neurontin] 1,200 mg PO HS 06/15/20 06/15/20 History Allergies Allergy/AdvReac Type Severity Reaction Status Date / Time latex Allergy Rash/Hives Verified 06/15/20 10:50 levofloxacin [From Levaquin] AdvReac Unknown Verified 06/15/20 10:50 Physical Exam Osteopathic Statement: *. No significant issues noted on an osteopathic structural exam other than those noted in the History and Physical/Consult. Vitals: Vital Signs Temp Pulse Resp BP Pulse Ox 06/15/20 12:00 72 18 114/73 100 06/15/20 11:00 67 18 129/76 98 06/15/20 09:36 98.3 F 82 18 145/89 100 Intake and Output 06/14/20 06/15/20 06/15/20 22:59 06:59 14:59 Other: Weight 60.328 kg General: [Alert and oriented, well nourished, no acute distress]. Eye: [PERRL, EOMI, normal conjunctiva]. HENT: [Normocephalic, clear tympanic membranes, normal hearing, moist oral mucosa, no scleral icterus, no sinus tenderness]. Neck: [Supple, non-tender, no carotid bruits, no JVD, no lymphadenopathy]. Lungs: [Clear to auscultation and percussion, non-labored respiration]. Heart: [Normal rate, regular rhythm, no murmur, gallop or edema]. Abdomen: [Soft, non-tender, non-distended, normal bowel sounds, no masses]. Musculoskeletal: [Normal range of motion and strength, no tenderness or swelling]. Skin: [Skin is warm, dry and pink, no rashes or lesions]. Neurologic: [Awake, alert, and oriented X3, CN II-XII intact]. Psychiatric: [Cooperative, appropriate mood and affect]. Results CBC & Chem 7: 06/15/20 10:01 06/15/20 10:01 Labs: Abnormal Lab Results - Last 24 Hours (Table) 06/15/20 Range/Units 10:01 Glucose 184 H (74-99) mg/dL ALT 41 H (4-34) U/L Thrombosis Risk Factor Assmnt - Choose All That Apply Any of the Below Risk Factors Present?: Yes Each Factor Represents 1 point: Age 41-60 years Other Risk Factors: No Other congenital or acquired thrombophilia - If yes, enter type in comment: No Thrombosis Risk Factor Assessment Total Risk Factor Score: 1 Thrombosis Risk Factor Assessment Level: Low Risk Assessment and Plan Assessment: #Chest pain: EKG shows T-wave inversions in V1 to V3. Chest x-ray shows no ac [place] process. Troponin negative 1. Check echocardiogram. Cardiology consult. Start aspirin. Check LDL. #Hyperglycemia: Check hemoglobin A1c #ADHD: Patient states that she very rarely takes her Adderall at home. #Chronic back pain: Resume gabapentin CODE STATUS:full code DVT prophylaxis: mechanical Discussed with: Patient, ER, rn Anticipated length of stay < than [address]: home A total of 50 minutes was spent on the care of this complex patient more than 50% of the time was spent in counseling and care coordination.
[2020-06-15] MEDS ORDERED: GABAPENTIN 300 MG CAP PO SCH (21:00)
[2020-06-16 00:08] LABS: Hemoglobin A1C 5.1 % (4.0-6.0)
[2020-06-16 07:28] LABS: Cholesterol 183 mg/dL (<200); HDL Cholesterol 76 mg/dL (40-60); LDL Cholesterol,Calculated 94 mg/dL (0-99); Triglycerides 63 mg/dL (<150)
[2020-06-16 08:24] VITALS: RESP 16
[2020-06-16] MEDS ORDERED: ASPIRIN 81 MG PO SCH (09:00)
--- NOTE | 2020-06-16 13:31 | ECHOF ---
Referral Reason:chest pain MEASUREMENTS -------- HEIGHT: 162.6 cm WEIGHT: 60.3 kg BP: 118/62 RVIDd: 2.5 cm (< 3.3) IVSd: 1.2 cm (0.6 - 1.1) LVIDd: 3.7 cm (3.9 - 5.3) LVPWd: 1.3 cm (0.6 - 1.1) IVSs: 1.2 cm LVIDs: 2.8 cm LVPWs: 1.7 cm Ao Diam: 2.7 cm (2.0 - 3.7) AV Cusp: 1.6 cm (1.5 - 2.6) LA Diam: 2.0 cm (2.7 - 3.8) MV EXCURSION: 17.484 mm (> 18.000) MV EF SLOPE: 135 mm/s (70 - 150) EPSS: 1.1 cm MV E Babar: 0.76 m/s MV DecT: 278 ms MV A Babar: 0.51 m/s MV E/A Ratio: 1.48 RAP: 5.00 mmHg RVSP: 17.99 mmHg FINDINGS -------- The left ventricular size is normal. There is mild concentric left ventricular hypertrophy. Overa ll left ventricular systolic function is normal with, an EF between 55 - 60 %. The right ventricle is normal in size. The left atrial size is normal. The right atrial size is normal. The aortic valve is trileaflet and appears structurally normal. The mitral valve is normal. There is trace mitral regurgitation. The tricuspid valve appears structurally normal. Trace tricuspid regurgitation present. Right erika tricular systolic pressure is normal at < 35 mmHg. There is no pulmonic regurgitation present. The aortic root size is normal. Normal inferior vena cava with normal inspiratory collapse consistent with estimated right atrial pre ssure of 5 mmHg. There is no pericardial effusion. CONCLUSIONS -------- 1. The left ventricular size is normal. 2. There is mild concentric left ventricular hypertrophy. 3. Overall left ventricular systolic function is normal with, an EF between 55 - 60 %. 4. There is trace mitral regurgitation. 5. Trace tricuspid regurgitation present. 6. There is no pericardial effusion. PROOF LOAD MECHANIC: Zhanna Perdomo RDCS
[2020-06-16 15:28] VITALS: BP 116/65; PULSE 65; TEMP 98.6
[2020-06-16] MEDS ORDERED: ISOSORBIDE MONONITRATE ER 30 MG TAB.ER.24H PO SCH (15:45)
--- NOTE | 2020-06-16 15:47 | P.DS ---
Providers Date of admission: 06/15/20 11:30 Expected date of discharge: 06/16/20 Attending physician: Vince Pino MD Consults: 06/15/20 11:30 Consult Physician Routine Consulting Provider: Guy Thompson Consult Reason/Comments: CP Do you want consulting provider notified?: Yes Primary care physician: Kane Manning MD Hospital Course: Discharge Diagnosis 1. Chest Pain 2. Hyperglycemia 2/2 stress (HgbA1c is 5.1) 3. ADHD 4. Chronic back pain Hospital Course Patient is a 50 yo F who presented with chest pain. Her troponin were negative x3. EKG showed TWI in leads V1 to V3. Patient was seen by cardiology and started on ASA and imdur. Patient told to follow up with cardiology outpatient for a heart catherization. Echo showed EF of 55 to 60%. General: [Alert and oriented, well nourished, no acute distress]. Eye: [PERRL, EOMI, normal conjunctiva]. HENT: [Normocephalic, clear tympanic membranes, normal hearing, moist oral mucosa, no scleral icterus, no sinus tenderness]. Neck: [Supple, non-tender, no carotid bruits, no JVD, no lymphadenopathy]. Lungs: [Clear to auscultation and percussion, non-labored respiration]. Heart: [Normal rate, regular rhythm, no murmur, gallop or edema]. Abdomen: [Soft, non-tender, non-distended, normal bowel sounds, no masses]. Musculoskeletal: [Normal range of motion and strength, no tenderness or swell ing]. Skin: [Skin is warm, dry and pink, no rashes or lesions]. Neurologic: [Awake, alert, and oriented X3, CN II-XII intact]. Psychiatric: [Cooperative, appropriate mood and affect]. I spent 30 min with the patient and completing all discharge tasks Patient Condition at Discharge: Stable Plan - Discharge Summary Discharge Rx Participant: Yes New Discharge Prescriptions: New Aspirin 81 mg PO DAILY #30 chew Isosorbide Mononitrate ER [Imdur] 30 mg PO DAILY #30 tab.er.24h Continue Gabapentin [Neurontin] 1,200 mg PO HS Albuterol Sulfate [Ventolin HFA] 1 - 2 puff INHALATION RT-Q6H PRN PRN Reason: Shortness Of Breath Dextroamphetamine/Amphetamine [Adderall] 20 mg PO TID PRN PRN Reason: ADHD Discharge Medication List Albuterol Sulfate [Ventolin HFA] 1 - 2 puff INHALATION RT-Q6H PRN 06/15/20 [History] Dextroamphetamine/Amphetamine [Adderall] 20 mg PO TID PRN 06/15/20 [History] Gabapentin [Neurontin] 1,200 mg PO HS 06/15/20 [History] Aspirin 81 mg PO DAILY #30 chew 06/16/20 [Rx] Isosorbide Mononitrate ER [Imdur] 30 mg PO DAILY #30 tab.er.24h 06/16/20 [Rx] Follow up Appointment(s)/Referral(s): Darnell Siu DO [STAFF PHYSICIAN] - 1 Week Kane Manning MD [Primary Care Provider] - 1-2 days Patient Instructions/Handouts: Chest Pain (DC) Discharge Disposition: HOME SELF-CARE
--- NOTE | 2020-06-16 16:39 | P.CRDCN ---
History of Present Illness History of present illness: HISTORY OF PRESENTING ILLNESS This is a pleasant 50-year-old female past medical history significant for ADHD, fibromyalgia, chronic back pain. 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 She admits that since June 03 she has been having issues of chest pain. She admits that initially she went to [facility] and then to [facility] with workups including troponins which were normal. Unfortunately she has still been having episodes of chest pressure sensation like something is on her chest which mainly occurs when she exerts herself such as walking more than 50 feet. Additionally if she becomes stressed she will also have chest pressure. Usually it lasts for a few minutes and resolves on its own. She denies any other alleviating or aggravating maneuvers. She additionally had a CT chest performed at prior hospital which showed ruptured bilateral breast implants. She denies any reproducibility of the chest pain with palpation or movement. She is unclear how long the breast implants may have been ruptured. Denies any recent trauma. She does admit to some associated shortness of breath when she has the chest pain as well as some lightheadedness. Chest pain never occurs when she is sitting. Patient admits she is always had mild bradycardia with heart rates in the 50s. Previous to this she had been fairly healthy and no inhibition with any activities. DIAGNOSTICS EKG reveals normal sinus rhythm, normal axis, T-wave inversion V1 through V3. Patient was noted to have T-wave inversions in V1 through V2 on prior EKG from 09/04/2019 Chest xray no acute process. Laboratory reviewed, white blood cell count 7.5, hemoglobin 13.9, platelets 306, creatinine 0.57, hemoglobin A1c 5.1, troponin 0.0123, total cholesterol 183, LDL 94, HDL 76. Current cardiac medications include none. REVIEW OF SYSTEMS At the time of my exam: CONSTITUTIONAL: Denies fever or chills. CARDIOVASCULAR: Denies chest pain, shortness of breath, orthopnea, PND or palpitations. RESPIRATORY: Denies cough. GASTROINTESTINAL: Denies abdominal pain, diarrhea, constipation, nausea or vomiting. MUSCULOSKELETAL: Denies myalgias. NEUROLOGIC: Denies numbness, tingling or weakness. ENDOCRINE: Denies fatigue, weight change, polydipsia or polyurina. GENITOURINARY: Denies burning, hematuria or urgency with micturation. HEMATOLOGIC: Denies history of anemia or bleeding. PHYSICAL EXAMINATION Blood pressure 116/65 heart rate 65 afebrile and maintaining oxygen saturation on room air. CONSTITUTIONAL: No apparent distress. HEENT: Head is normocephalic. Pupils are equal, round. Sclerae anicteric. Mucous membranes of the mouth are moist. No JVD. No carotid bruit. CHEST EXAMINATION: Lungs are clear to auscultation. No chest wall tenderness is noted on palpation or with deep breathing. + Breast implants bilaterally HEART EXAMINATION: Regular rate and rhythm. S1, S2 heard. No murmurs, gallops or rub. ABDOMEN: Soft, nontender. Positive bowel sounds. EXTREMITIES: 2+ peripheral pulses, no lower extremity edema and no calf tenderness. NEUROLOGIC EXAMINATION: Patient is awake, alert and oriented x3. ASSESSMENT 1. Atypical chest pain worse with exertion and improved with rest which has been new over the past 2 weeks. 2. Asymptomatic sinus bradycardia 3. Bilateral breast implant rupture 4. History of fibromyalgia 5. Abnormal EKG with T-wave inversions V1 through V3, somewhat similar to August EKG with T-wave inversions V1 through V2 PLAN Echocardiogram reviewed with normal ejection fraction 55-60%, no significant valvular disease. Patient does however have fairly typical sounding symptoms with chest pain worse with exertion and improved with rest. We discussed possible options around the holiday time. We discussed possible heart catheterization versus stress testing and patient is desiring to have a heart catheterization for definitive evaluation given her concerning symptoms. Unfortunately due to scheduling as well as malfunction of some of the [employer] Systems Analyst Consultant computer system, [employer] is currently down. Discussed possible attempt at medical therapy and outpatient follow-up, outpatient heart catheterization and patient is agreeable. We will start aspirin as well as Imdur with when necessary nitroglycerin. Discussed that if chest pain persists to report immediately back to the emergency department. Past Medical History Past Medical History: No Reported History, Fibromyalgia Additional Past Medical History / Comment(s): diverticulitis History of Any Multi-Drug Resistant Organisms: None Reported Past Surgical History: Section, Hysterectomy, Orthopedic Surgery Additional Past Surgical History / Comment(s): back surgery, colonoscopy, laparoscopy, breast augmentation Past Anesthesia/Blood Transfusion Reactions: No Reported Reaction Past Psychological History: ADD/ADHD Smoking Status: Never smoker Past Alcohol Use History: Occasional Past Drug Use History: None Reported Medications and Allergies Home Medications Medication Instructions Recorded Confirmed Type Albuterol Sulfate [Ventolin HFA] 1 - 2 puff INHALATION RT-Q6H PRN 06/15/20 06/15/20 History Dextroamphetamine/Amphetamine 20 mg PO TID PRN 06/15/20 06/15/20 History [Adderall] Gabapentin [Neurontin] 1,200 mg PO HS 06/15/20 06/15/20 History Aspirin 81 mg PO DAILY #30 chew 06/16/20 Rx Isosorbide Mononitrate ER [Imdur] 30 mg PO DAILY #30 tab.er.24h 06/16/20 Rx Allergies Allergy/AdvReac Type Severity Reaction Status Date / Time latex Allergy Rash/Hives Verified 06/15/20 10:50 levofloxacin [From Levaquin] AdvReac Unknown Verified 06/15/20 10:50 Physical Exam Vitals: Vital Signs Temp Pulse Resp BP Pulse Ox 06/16/20 15:00 98.6 F 65 16 116/65 99 06/16/20 08:21 96.8 F L 56 L 16 103/63 99 06/16/20 03:00 98.1 F 61 18 118/62 100 06/15/20 21:00 98.0 F 71 15 110/62 97 Intake and Output 06/16/20 06/16/20 06/16/20 06:59 14:59 22:59 Other: Voiding Method Toilet Toilet # Voids 1 1 Results 06/15/20 10:01 06/15/20 10:01 Cardiac Enzymes 06/15/20 Range/Units 16:12 Troponin I <0.012 (0.000-0.034) ng/mL Lipids 06/15/20 Range/Units 10:01 Triglycerides 63 (<150) mg/dL Cholesterol 183 (<200) mg/dL HDL Cholesterol 76 H (40-60) mg/dL Intake and Output 06/16/20 06/16/20 06/16/20 06:59 14:59 22:59 Other: Voiding Method Toilet Toilet # Voids 1 1 06/15/20 10:01 06/15/20 10:01
== END 2020-06-16 16:17 | disposition home or self-care (01) ==
LOC: EC 09:35 → 1SOBS 11:30
PROVIDERS: ADMIT Internal Medicine; ATTEND Internal Medicine
DX: R07.89 Other chest pain (principal); R73.9 Hyperglycemia, unspecified; R00.1 Bradycardia, unspecified; R94.31 Abnormal electrocardiogram [ECG] [EKG]; T85.49XA Other mechanical complication of breast prosthesis and implant, initial encounter; M79.7 Fibromyalgia; G89.29 Other chronic pain; M54.9 Dorsalgia, unspecified; J45.909 Unspecified asthma, uncomplicated; K57.90 Diverticulosis of intestine, part unspecified, without perforation or abscess without bleeding; R42 Dizziness and giddiness; F90.9 Attention-deficit hyperactivity disorder, unspecified type; Z79.899 Other long term (current) drug therapy; Z88.1 Allergy status to other antibiotic agents; Z91.040 Latex allergy status; Z90.710 Acquired absence of both cervix and uterus; Z98.890 Other specified postprocedural states; Z98.82 Breast implant status
CPT/HCPCS: 93005 ×2; 99285; 36415; 93306; 85379; 80053; 80061; 83690; 83735; 84484; 85025; 85610; 85730; 83036; 71046; G0378 ×2

== ENCOUNTER 2020-06-22 08:04 | Day surgery (SDC) | payer OTHER ==
[2020-06-20 14:32] VITALS: BMI 22.8
[~2020-06-22 08:04] MED LIST: ALPRAZolam 0.25 MG TAB PO PRN; ALPRAZolam 0.5 MG TAB PO PRN; ASPIRIN 325 MG TAB PO STA; ATORVASTATIN 80 MG TAB PO STA; NITROGLYCERIN SL TABS 0.4 MG TAB SUBLINGUAL PRN; SODIUM CHLORIDE 0.9% 1,000 ML in EMPTY BAG 1 BAG IV ONE
[2020-06-22 08:24] VITALS: TEMP 98.6
[2020-06-22] MEDS ORDERED: SODIUM CHLORIDE 0.9% 1,000 ML IV ONE (08:24)
[2020-06-22] MEDS ORDERED: LIDOCAINE 1% INJ 10MG/ML (20 ML MDV) ONE (09:05)
[2020-06-22] MEDS ORDERED: fentaNYL (PF) 50 MCG/ML 2 ML AMP ONE (09:06)
[2020-06-22] MEDS ORDERED: VERAPAMIL 2.5 MG/ML 2 ML AMP ONE (09:06)
[2020-06-22] MEDS ORDERED: HEPARIN SODIUM 1,000 UN/ML (10ML VL) ONE (09:06)
[2020-06-22] MEDS ORDERED: fentaNYL (PF) 50 MCG/ML 2 ML AMP IV ONE (09:15)
[2020-06-22] MEDS ORDERED: MIDAZOLAM 2 MG/2 ML VIAL IV ONE (09:15)
[2020-06-22] MEDS ORDERED: LIDOCAINE 1% INJ 10MG/ML (20 ML MDV) SQ ONE (09:17)
[2020-06-22] MEDS: VERAPAMIL SYRINGE (5 MG/10 ML) INTRAARTER ONE ×3 (09:20→09:29)
[2020-06-22] MEDS ORDERED: HEPARIN SODIUM 1,000 UN/ML (10ML VL) IV ONE (09:24)
[2020-06-22] MEDS ORDERED: IOPAMIDOL-370 125ML BTL INJ ONE (09:29)
[2020-06-22] MEDS ORDERED: RX INFO: IV CONTRAST WAS GIVEN 1 EACH MISC MISCELLANE PRN (09:56)
--- NOTE | 2020-06-22 09:56 | P.CARDCATH ---
Description of Procedure: PROCEDURES PERFORMED: Bilateral coronary angiography INDICATION: Chest pain concerning for unstable angina HISTORY: Patient is a pleasant 50-year-old female with a history of ADHD, fibromyalgia, chronic back pain who has been having worsening episodes of chest pain as well as shortness of breath which mainly occurs with exertion. She did have a CAT scan performed which showed bilateral breast implant rupture. Her symptoms mainly are however with exertion and concerning for angina. She has had multiple admissions recently and was recently offered a stress test or heart catheterization and patient desired heart catheterization for definitive diagnosis. CONSENT:I have discussed the risks, benefits and alternative therapies for the above-mentioned procedure and for both sedation/analgesia as well as necessary blood product administration, if indicated, as they pertain to this patient. The patient has indicated understanding and acceptance of the risks and procedures discussed. PROCEDURE: After the risks, benefits and alternatives of the above mentioned procedure explained in detail with the patient, informed consent was obtained. Patient was taken to the catheterization lab and prepped and draped in usual fashion. 1% lidocaine was used to anesthetize the right radial artery. A 6- Russian sheath was placed in the right radial artery using modified Seldinger technique. Left coronary angiography was performed with a 5-Russian JL 3.5 catheter and right coronary angiography was performed with a 5-Russian JR5 ca theter in various views. The right radial sheath was removed and a TR band was placed with hemostasis achieved. The patient tolerated the procedure well. Patient was transported back to the post catheterization holding area in stable condition. Conscious Sedation: Patient was monitored under the direct supervision of vision of myself for conscious sedation using Versed and fentanyl for a total duration of 21 minutes HEMODYNAMICS: Aorta: 106/78 SELECTIVE CORONARY ARTERIOGRAPHY: LEFT MAIN: The left main is a large caliber vessel which bifurcates into the LAD and circumflex. There is no significant stenosis. LEFT ANTERIOR DESCENDING CORONARY ARTERY: LAD is a large caliber vessel which wraps around to the apex. There is no significant stenosis. LEFT CIRCUMFLEX CORONARY ARTERY: Left circumflex is a moderate caliber vessel without significant stenosis. RIGHT CORONARY ARTERY: The right coronary artery is a large caliber vessel which gives off a PDA and PLV branch and is the dominant vessel. There is no significant stenosis. FINAL IMPRESSION: 1. Normal coronary arteries as described above. PLAN: 1. Aggressive risk factor modification per most recent ACC/AHA guidelines. 2. Follow-up in the office in 1-2 weeks. We will discontinue her Imdur as this has been giving her a headache and do not feel it is useful for her. Consider further workup of breast implant rupture as this may be the source of some of her chest pain.
[2020-06-22 12:06] VITALS: PULSE 60; RESP 16
[2020-06-22 12:57] VITALS: BP 100/65
== END 2020-06-22 13:23 | disposition home or self-care (01) ==
LOC: CATHCVL 08:04
PROVIDERS: ATTEND Internal Medicine
DX: R07.89 Other chest pain (principal); R06.02 Shortness of breath; R42 Dizziness and giddiness; R00.1 Bradycardia, unspecified; R94.31 Abnormal electrocardiogram [ECG] [EKG]; I20.0 Unstable angina; T85.41XA Breakdown (mechanical) of breast prosthesis and implant, initial encounter; F90.9 Attention-deficit hyperactivity disorder, unspecified type; M79.7 Fibromyalgia; G89.29 Other chronic pain; M54.9 Dorsalgia, unspecified; G44.40 Drug-induced headache, not elsewhere classified, not intractable; T46.3X5A Adverse effect of coronary vasodilators, initial encounter; K57.90 Diverticulosis of intestine, part unspecified, without perforation or abscess without bleeding; Z98.890 Other specified postprocedural states; Z90.710 Acquired absence of both cervix and uterus; Z79.899 Other long term (current) drug therapy; Z79.82 Long term (current) use of aspirin; Z91.040 Latex allergy status; Z88.1 Allergy status to other antibiotic agents
CPT/HCPCS: 93454; C1769 ×2; C1894; J2250; J2001; J3010; J1644; Q9967

== ENCOUNTER 2020-06-25 14:00 | Emergency (ER) | payer OTHER ==
[2020-06-25] MEDS ORDERED: SODIUM CHLORIDE 0.9% 500 ML 500 ML IV STA (14:48)
--- NOTE | 2020-06-25 14:52 | ED ---
General Adult HPI - General Chief complaint: Extremity Problem,Nontraumatic Stated complaint: Pain in Arm-Post Heart cath/Sent by Time Seen by Provider: 06/25/20 14:17 Source: patient, RN notes reviewed Mode of arrival: wheelchair Limitations: no limitations - History of Present Illness Initial comments: 50-year-old female status post radial approach her cath 3 days ago presents to the emergency department for right arm pain. Patient reports she has pain starting from her wrist at the insertion site to her shoulder. States this pain has been consistent since she had her heart cath. She states it worsens with movement especially with supination of the right hand. Patient states that she called her territory development manager who reported he was concerned for DVT or other causes of pain and recommended she come to the emergency room. Her heart catheterization was negative. Patient denies any new or different chest pain or shortness of breath.Patient has no other complaints at this time including shortness of breath, chest pain, abdominal pain, nausea or vomiting, headache, or visual changes. - Related Data Home Medications Medication Instructions Recorded Confirmed Albuterol Sulfate [Ventolin HFA] 1 - 2 puff INHALATION RT-Q6H PRN 06/15/20 06/25/20 Dextroamphetamine/Amphetamine 20 mg PO TID PRN 06/15/20 06/25/20 [Adderall] Gabapentin [Neurontin] 1,200 mg PO HS 06/15/20 06/25/20 Acetaminophen [Tylenol Extra 500 - 1,000 mg PO Q6H PRN 06/20/20 06/25/20 Strength] Cholecalciferol [Vitamin D3 (25 5,000 unit PO DAILY 06/20/20 06/25/20 Mcg = 1000 Iu)] Elderberry Gummies 2 tab PO DAILY 06/20/20 06/25/20 Allergies Allergy/AdvReac Type Severity Reaction Status Date / Time latex Allergy Rash/Hives Verified 06/25/20 16:17 levofloxacin [From Levaquin] AdvReac Unknown Verified 06/25/20 16:17 Review of Systems ROS Statement: Those systems with pertinent positive or pertinent negative responses have been documented in the HPI. ROS Other: All systems not noted in ROS Statement are negative. Past Medical History Past Medical History: Chest Pain / Angina, Eye Disorder, Fibromyalgia, GERD/Reflux Additional Past Medical History / Comment(s): Diverticulitis, colitis. Rt eye macular degeneration (dry). Lower back pain. Hx cyst on kidney; nodule on thyroid. Recent overnight stay D/T CP, shortness of breath w/ prolonged activity. History of Any Multi-Drug Resistant Organisms: None Reported Past Surgical History: Back Surgery, Section, Heart Catheterization, Hysterectomy, Orthopedic Surgery Additional Past Surgical History / Comment(s): Back surgery laminectomy/fusion L5-S1, bilat SI joints fused, colonoscopies, laparoscopy, breast augmentation, EGD Heart cath 06/12/2020 Past Anesthesia/Blood Transfusion Reactions: No Reported Reaction, Motion Sickness Past Psychological History: ADD/ADHD Smoking Status: Former smoker Past Alcohol Use History: Occasional Past Drug Use History: None Reported - Past Family History Mother Family Medical History: Cancer Additional Family Medical History / Comment(s): breast cancer Father Family Medical History: Cancer Additional Family Medical History / Comment(s): tonsil cancer, gastric cancer General Exam Limitations: no limitations General appearance: alert, in no apparent distress Head exam: Present: atraumatic, normocephalic, normal inspection Eye exam: Present: normal appearance, PERRL, EOMI. Absent: scleral icterus, conjunctival injection, periorbital swelling ENT exam: Present: normal exam, mucous membranes moist Neck exam: Present: normal inspection. Absent: tenderness, meningismus, lymphadenopathy Respiratory exam: Present: normal lung sounds bilaterally. Absent: respiratory distress, wheezes, rales, rhonchi, stridor Cardiovascular Exam: Present: regular rate, normal rhythm, normal heart sounds. Absent: systolic murmur, diastolic murmur, rubs, gallop, clicks GI/Abdominal exam: Present: soft, normal bowel sounds. Absent: distended, tenderness, guarding, rebound, rigid Extremities exam: Present: full ROM (Full range motion of the right upper extremity however patient does have pain with supination of the right hand.), normal capillary refill (Radial pulses 2+. Capillary refill less than 2 seconds in the right upper extremity. Patient does have some mild ecchymosis noted on the volar aspect of the right wrist.), other (Sensation intact right upper 70, language specialist strength 5 out of 5. Skin exam normal. Hands are warm bilaterally.). Absent: joint swelling (No edema or erythema throughout the right upper extremity.) Course Vital Signs 06/25/20 06/25/20 06/25/20 14:01 16:00 17:00 Temperature 98.1 F 98.3 F 98.0 F Pulse Rate 62 71 69 Respiratory 18 16 16 Rate Blood Pressure 121/68 116/78 118/63 O2 Sat by Pulse 99 100 100 Oximetry 06/25/20 17:39 Temperature 98.4 F Pulse Rate 68 Respiratory 16 Rate Blood Pressure 110/72 O2 Sat by Pulse 100 Oximetry EKG Findings - EKG Comments: EKG Findings:: Normal sinus rhythm, ventricular rate 62, NJ interval 120, QTC 416 Medical Decision Making - Medical Decision Making 50-year-old female status post heart catheterization 4 days ago presents for right arm pain. Patient states she has pain in the right arm that worsens with movement especially supination of the right hand. Radial pulses 2+ in the right upper extremity and equal the left upper extremity. Skin exam is normal. Hands are equally warm bilaterally. Sensation intact. Full strength. Neurovascular status is intact. Ultrasound shows no evidence of pseudoaneurysm. There is a log segment of severe stenosis of the radial artery proximal to the catheter site. Ultrasound shows no evidence of DVT in the right arm which was ordered because patient reports on-call territory development manager was concerned for DVT. 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 There is a long segment of fusiform narrowing of at least 50% diameter of the proximal radial artery. Ulnar artery and brachial artery appear fairly normal. No evidence of a hematoma. I did speak with Dr. Matos who does not see evidence of dissection. Dr. Peguero spoke with Dr. Ladd who is agreeable to patient being discharged and following up outpatient. I did offer patient admission for monitoring and pain control however she would prefer to go home. She does have an appointment on Saturday but will call on Saturday to be seen earlier. 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 She will return here for any worsening symptoms. I did discuss the symptoms w/ patient as well. - Lab Data Result diagrams: 06/25/20 14:52 06/25/20 14:52 Lab Results 06/25/20 06/25/20 Range/Units 14:52 14:52 WBC 8.1 (3.8-10.6) k/uL RBC 4.22 (3.80-5.40) m/uL Hgb 13.8 (11.4-16.0) gm/dL Hct 40.6 (34.0-46.0) % MCV 96.2 (80.0-100.0) fL MCH 32.8 (25.0-35.0) pg MCHC 34.0 (31.0-37.0) g/dL RDW 12.5 (11.5-15.5) % Plt Count 245 (150-450) k/uL MPV 7.1 Neutrophils % 56 % Lymphocytes % 34 % Monocytes % 6 % Eosinophils % 2 % Basophils % 1 % Neutrophils # 4.5 (1.3-7.7) k/uL Lymphocytes # 2.8 (1.0-4.8) k/uL Monocytes # 0.5 (0-1.0) k/uL Eosinophils # 0.1 (0-0.7) k/uL Basophils # 0.0 (0-0.2) k/uL Sodium 141 (137-145) mmol/L Potassium 4.3 (3.5-5.1) mmol/L Chloride 106 (98-107) mmol/L Carbon Dioxide 31 H (22-30) mmol/L Anion Gap 4 mmol/L BUN 22 H (7-17) mg/dL Creatinine 1.04 (0.52-1.04) mg/dL Est GFR (CKD-EPI)AfAm 72 (>60 ml/min/1.73 sqM) Est GFR (CKD-EPI)NonAf 62 (>60 ml/min/1.73 sqM) Glucose 94 (74-99) mg/dL Calcium 9.5 (8.4-10.2) mg/dL Disposition Clinical Impression: Arm pain, History of cardiac cath Narrative: Radial artery anomaly Disposition: HOME SELF-CARE Condition: Good Instructions (If sedation given, give patient instructions): Arm Pain (ED) Additional Instructions: Please monitor for any worsening symptoms such as worsening pain, decreased sensation in the right hand, skin or color changes in the right hand, or any other worsening symptoms and return immediately if these occur. Otherwise follow-up with your territory development manager. Call Saturday for earlier appointment. Is patient prescribed a controlled substance at d/c from ED?: No Referrals: Kane Manning MD [Primary Care Provider] - 1-2 days Darnell Siu DO [STAFF PHYSICIAN] - 1-2 days Time of Disposition: 18:22
[2020-06-25 15:02] LABS: Basophils % (A) 1 %; Eosinophils # (A) 0.1 k/uL (0-0.7); Eosinophils % (A) 2 %; HCT 40.6 % (34.0-46.0); HGB 13.8 gm/dL (11.4-16.0); Lymphocytes # (A) 2.8 k/uL (1.0-4.8); Lymphocytes % (A) 34 %; MCH 32.8 pg (25.0-35.0); MCV 96.2 fL (80.0-100.0); Mean Platelet Volume 7.1; Monocytes # (A) 0.5 k/uL (0-1.0); Monocytes % (A) 6 %; Neutrophils # (A) 4.5 k/uL (1.3-7.7); Neutrophils % (A) 56 %; Platelet Count 245 k/uL (150-450); RBC 4.22 m/uL (3.80-5.40); RDW 12.5 % (11.5-15.5); WBC 8.1 k/uL (3.8-10.6)
[2020-06-25 15:16] LABS: Calcium 9.5 mg/dL (8.4-10.2); Potassium 4.3 mmol/L (3.5-5.1)
--- NOTE | 2020-06-25 15:52 | US ---
EXAMINATION TYPE: US venous doppler duplex UE RT DATE OF EXAM: 06/25/2020 COMPARISON: NONE Severe right arm pain post cardiac catheterization via right radial artery on . CLINICAL HISTORY: pain post heart carth. SIDE PERFORMED: right Right Arm: Negative for DVT IMPRESSION: No evidence of deep vein thrombosis in the right arm.
[2020-06-25 16:01] VITALS: RESP 16
--- NOTE | 2020-06-25 16:10 | US ---
EXAMINATION TYPE: US upper ext pseudo RT DATE OF EXAM: 06/25/2020 COMPARISON: NONE CLINICAL HISTORY: pain post heart cath. Severe right arm pain post radial artery approach cardiac cat heterization 06/22/20. US findings or right radial artery duplex: Short segment stenosis is seen for 2.4cm long just proxima l to cardiac cath needle insert site at distal radial artery. Radial artery flow is seen proximal to stenosis and distal to stenosis at base of thumb. In radial artery stenosis a monophasic arterial Dop pler waveform is noted with limited color filling in artery. Right Ulnar Artery and Axillary Artery a re patent. No Brachial Artery is seen as Radial and Ulnar Arteries branch off of Axillary Artery. Right radial artery is negative for Pseudoaneurysm. IMPRESSION: No evidence of pseudoaneurysm. 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 Abnormal monophasic waveforms.
[2020-06-25] MEDS ORDERED: ACETAMINOPHEN TAB 325 MG TAB PO STA (16:34)
--- NOTE | 2020-06-25 17:41 | CT ---
EXAMINATION TYPE: CT angio upper extremity RT DATE OF EXAM: 06/25/2020 COMPARISON: None HISTORY: Right arm pain post heart cath x4 days ago. CT DLP: 603.9 mGycm Automated exposure control for dose reduction was used. CONTRAST: Performed with IV Contrast, patient injected with 100ml mL of Isovue 370. Multiple axial sections were obtained from the base of the neck to the end of the right hand with IV contrast. There are 3-D post processed images. The dorsum of the right hand is not included in the fi eld-of-view on the exam. There is normal contrast opacification of the aortic arch and great vessels. There is arterial flow i n the right subclavian artery and both common carotid arteries and both vertebral arteries. Right sub clavian arteries widely patent. Right axillary artery appears normal. Brachial artery appears normal. The radial artery appears to have origin in the right upper arm on the proximal brachial artery. The ulnar artery at the elbow shows arterial flow. The brachial artery in the upper arm appears patent. I see no significant luminal narrowing of the brachial and ulna arteries. I see no pathologic fluid c ollection. There is arterial flow in the ulna and radial arteries at the wrist. There is significant luminal narrowing of the proximal radial artery which is at the level of the mid humerus. There is fusiform narrowing. This is at least 50% narrowing. The radial artery at the elbow has fairly normal diameter. 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 There is a long segment of fusiform narrowing of at least 50% diameter of the proximal radial artery . Ulnar artery and brachial artery appear fairly normal. There is no evidence of a hematoma.
[2020-06-25 18:34] VITALS: BP 113/61; PULSE 72; TEMP 98
== END 2020-06-25 18:30 | disposition home or self-care (01) ==
LOC: EC 14:00
DX: M79.601 Pain in right arm (principal); I70.208 Unspecified atherosclerosis of native arteries of extremities, other extremity; R58 Hemorrhage, not elsewhere classified; F90.9 Attention-deficit hyperactivity disorder, unspecified type; M79.7 Fibromyalgia; M54.5 Low back pain; Z79.899 Other long term (current) drug therapy; Z91.040 Latex allergy status; Z88.1 Allergy status to other antibiotic agents; Z87.891 Personal history of nicotine dependence
CPT/HCPCS: 36415; 93005; 80048; 85025; 93931; 93971; 73206; 99284; 96360; Q9967